=== PATIENT | male | born 1995 | race Two or more races ===

== ENCOUNTER 2020-01-11 11:48 | Emergency (ER) | payer MEDICAID, OTHER ==
[~2020-01-11] VITALS: Ht 172.7 cm; Wt 86.2 kg
[2020-01-11 11:55] VITALS: BP 130/75
[2020-01-11] MEDS ORDERED: IBUPROFEN 800 MG TAB PO ONE (12:15)
== END 2020-01-11 12:54 | disposition home or self-care (01) ==
LOC: EDBD 11:48 → ER 11:48
DX: S16.1XXA Strain of muscle, fascia and tendon at neck level, initial encounter (principal); S46.811A Strain of other muscles, fascia and tendons at shoulder and upper arm level, right arm, initial encounter; X58.XXXA Exposure to other specified factors, initial encounter; Y93.89 Activity, other specified; Y92.89 Other specified places as the place of occurrence of the external cause; Y99.8 Other external cause status
CPT/HCPCS: 72040; 73030